=== PATIENT | male | born 2005 | race Two or more races ===

== ENCOUNTER 2025-03-18 18:23 | Emergency (ER) | payer OTHER ==
[~2025-03-18] VITALS: Ht 182.9 cm; Wt 63.5 kg
[2025-03-18] MEDS ORDERED: FAMOTIDINE/PF 20 MG/2 ML VIAL IV STA (19:56)
[2025-03-18] MEDS ORDERED: ONDANSETRON HCL 2 MG/ML VIAL IV STA (19:57)
[2025-03-18] MEDS ORDERED: DEXTROSE 5 %-0.45 % SOD CHLORD 1,000 ML IV STA (19:59)
[2025-03-18 20:27] LABS: BASO % 0.1 % (0.1-1.2); EOS # 0.00 (0.04-0.54); EOS % 0.0 % (0.7-7.0); LYMPH # 1.43 (1.18-3.74); LYMPH % 10.6 % (19.3-53.1); MEAN PLATELET VOLUME 8.70 fl (9.4-12.4); MONO # 0.52 (0.24-0.82); MONO % 3.8 % (4.7-12.5); NEUT # 11.51 (1.56-6.13); NEUT % 85.1 % (34.0-71.1); RED CELL DISTRIBUTION WIDTH 12.6 % (11.6-14.4)
[2025-03-18 21:29] LABS: ALT/SGPT 22.0 U/L (12-78); AST/SGOT 15.0 U/L (15-37); BILIRUBIN TOTAL 1.58 mg/dL (0.3-1.2); BUN CREA RATIO 12.0 (7.0-25.0); CREATININE SERUM 0.98 mg/dL (0.70-1.30); GFR 98.53; GLOBULINA 4.2 G/DL (2.4-3.5); GLUCOSE FASTING 110.0 mg/dL (65-100); OSMOLALITY SERUM 278.0 MOSM/KG (275-295)
[2025-03-18 21:44] LABS: COVID-19 AG NEGATIVE (NEGATIVE)
[2025-03-18] MEDS ORDERED: PEPCID AC20 MG PO (22:23)
[2025-03-18] MEDS ORDERED: ONDANSETRON ODT4 MG PO (22:23)
== END 2025-03-19 01:29 | disposition home or self-care (01) ==
LOC: EMR PED 19:36
DX: K29.70 Gastritis, unspecified, without bleeding (principal); Z20.822 Contact with and (suspected) exposure to COVID-19